=== PATIENT | female | born 1965 ===

== ENCOUNTER 2019-10-08 07:39 | Emergency (ER) | payer SELFPAY ==
--- NOTE | 2019-10-08 07:40 | NUR ---
Pt called to triage, Pt not in waiting room.
== END 2019-10-08 10:01 | disposition home or self-care (01) ==
LOC: ER 07:41
DX: F41.1 Generalized anxiety disorder (principal); Z53.21 Procedure and treatment not carried out due to patient leaving prior to being seen by health care provider